=== PATIENT | male | born 1955 | race Caucasian/White ===

== ENCOUNTER 2019-06-28 09:57 | Emergency (ER) | payer OTHER ==
[2019-06-28 10:12] VITALS: BP 90/53; PULSE 60; TEMP 97.8; BMI 27.8
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
== END 2019-06-28 11:09 | disposition home or self-care (01) ==
LOC: JERFT 09:57
DX: H10.33 Unspecified acute conjunctivitis, bilateral (principal); I10 Essential (primary) hypertension
CPT/HCPCS: 99281-25